=== PATIENT | female | born 1955 | race Caucasian/White ===

== ENCOUNTER 2021-05-18 15:44 | Emergency (ER) | payer OTHER ==
[~2021-05-18] VITALS: Ht 175.3 cm; Wt 64.4 kg
[~2021-05-18 15:44] MED LIST: AMBEREN PO; AZITHROMYCIN; BENADRYL25 MG PO; CALCIUM; EPIPEN 2-P0.3 MG/0.3 IM; FLONASE; LOPRESSOR25 PO; LOPRESSOR50 PO; PEPCID40 MG PO; PREDNISONE50 MG PO; SLOW-MAG64 MG PO; VITAMIN D400 UNI1; XANAX 0.25 MG0.25 MG PO
[2021-05-18 17:46] VITALS: BP 123/77
== END 2021-05-18 17:46 | disposition home or self-care (01) ==
LOC: ER 15:44
DX: S00.90XA Unspecified superficial injury of unspecified part of head, initial encounter (principal); R51.9 Headache, unspecified; I10 Essential (primary) hypertension; Z98.890 Other specified postprocedural states; Z85.828 Personal history of other malignant neoplasm of skin; Z79.891 Long term (current) use of opiate analgesic; Z79.1 Long term (current) use of non-steroidal anti-inflammatories (NSAID); Z79.899 Other long term (current) drug therapy; Z88.0 Allergy status to penicillin; Z91.013 Allergy to seafood; W19.XXXA Unspecified fall, initial encounter; Y93.89 Activity, other specified; Y92.89 Other specified places as the place of occurrence of the external cause; Y99.8 Other external cause status